=== PATIENT | male | born 1970 | race Caucasian/White ===

== ENCOUNTER → 2019-07-01 08:53 | Outpatient (CLI) | payer BC ==
[~2019-07-01 08:53] MED LIST: BAYER CHEWABLE81 MG PO; CHLORTHALIDONE50 MG PO; LIPITOR20 MG PO; LISINOPRIL20 MG; PLAVIX75 MG PO
--- NOTE | 2019-07-05 11:41 | ST ---
PATIENT:AMADOR TIWARI MEDICAL RECORD: [id number] SEX: M LOCATION:[facility] ORDER #: ADMISSION DATE: 07/01/19 AGE OF PATIENT: 48 REFERRING PHYSICIAN: INTERPRETING PHYSICIAN: TOMASA RIVERA MD DATE OF SERVICE: 07/01/2019 PROCEDURE: Nuclear stress test. INDICATION: Angina, shortness of breath, hypertension, and hyperlipidemia. He was exercised on standard Armin protocol for 10 minutes achieving 85% max target heart rate response with 33 mCi of sestamibi injected at peak stress, 11 mCi used previously for rest images. FINDINGS: Gated SPECT reveals a decreased ejection fraction at 45% with decreased thickening and brightening throughout the inferior segments. SPECT imaging: Cardiolite was used as myocardial perfusion agent. There is a fixed perfusion defect inferiorly compatible with a previous inferior myocardial infarction; however, there is reversibility anteriorly and apically. This includes the basal, mid, apical anterior segments as well as the apex itself. The degree of reversibility is mild. The amount of myocardium involved between the 2 defects is large. OVERALL IMPRESSION: This is an intermediate risk abnormal nuclear stress test, fixed perfusion defect inferiorly, reversible ischemia anteriorly and apically suggestive of multivessel coronary artery disease. TRANSINT:[id number] Voice Confirmation ID: [id number] DOCUMENT ID: [id number] TOMASA RIVERA MD at 1141 CC: ELIZABETH CERNA [id number] DICTATION DATE: 07/04/19 1153 POT FILLER: 07/05/19 0030 DEP CLI 07/01/19 [facility] [address] [place] [address]
[2019-07-13 08:11] VITALS: BMI 22.4
== END | disposition home or self-care (01) ==
LOC: D.HCCARDIO 08:53
PROVIDERS: ATTEND Internal Medicine Interventional Cardiology
DX: Z03.89 Encounter for observation for other suspected diseases and conditions ruled out (principal)

== ENCOUNTER 2019-07-13 07:38 | Outpatient (CLI) | payer BC ==
[~2019-07-13] VITALS: Ht 182.9 cm; Wt 75.0 kg
--- NOTE | ~2019-07-13 | HEMODYNAMI ---
PATIENT:AMADOR TIWARI MEDICAL RECORD: [id number] : 66 LOCATION:[facility] ADMISSION DATE: 07/13/19 Generatedon:07/13/201910:09 Patient name: AMADOR TIWARI Patient #: [id number] SSN: [id number] : 1970 Date of study: 07/13/2019 Page: Of Hemodynamic Procedure Report Patient Data Patient Demographics Procedure consent was obtained First Name: AMADOR Gender: Male Last Name: TE : 1970 Patient #: [id number] Age: 48 year(s) Race: Unknown SSN: [id number] Additional ID: [id number] Contact details Address: [address] [place] [address] State: [place] City: [place] Zip code: [address] Past Medical History Allergies Allergen Reaction Date Comments Reported Other allergy 07/13/2019 bactrim Admission Admission Data Admission Date: 07/13/2019 Admission Time: 7:38 Arrival Date: 07/13/2019 Arrival Time: 0:00 Admit Source: Other Insurance Payor: Private health insurance [facility] #: [id number] Height (in.): 71.65 BSA: 1.96 (m2) Height (cm.): 182 BMI: 22.64 (kg/m2) Weight (lbs.): 165.35 Weight (kg.): 75 Procedure Procedure Types Cath Procedure Diagnostic Procedure C [facility] w/Coronaries FFR/IVUS FFR Initial Sedation Charges Moderate Sedation up to 15 minutes Moderate Sedation up to 30 minutes PCI Procedure Coronary Stent Coronary Stent Initial Procedure Description Procedure Date Procedure Date: 07/13/2019 Procedure Start Time: 9:48 Procedure End Time: 10:07 Procedure Staff Name Function Rob Onofre MD Performing Physician Shayla Benavides RT Monitor Crispin Tavarez RN Nurse Suzie Cruz RT Scrub Procedure Data Cath Procedure Fluoroscopy Diagnostic fluoroscopy Total fluoroscopy Time: 4.3 time: 4.3 min min Diagnostic fluoroscopy Total fluoroscopy dose: 413 dose: 413 mGy mGy Contrast Material Contrast Material Type Amount (ml) Isovue 300 84 Entry Location Entry Primary Successful Side Size Upsize Upsize Entry Closure Du ccessful Closure Location (Fr) 1 (Fr) 2 (Fr) Remarks Device Remarks Radial Right 6 Fr Mechanical artery Short Compression Estimated blood loss: 5 ml Diagnostic catheters Device Type Used For End Catheter Placement DIAGNOSTIC Michael 110cm 5 Procedure Fr catheter ([id number]) Procedure Complications No complications Procedure Medications Medication Administration Route Dosage 0.9% NaCl I.V. 100 ml/hr Oxygen etCO2 Nasal cannula 2 l/min Heparin Flush Bag added to field 2 bags (1000units/500ml NS) Lidocaine 2% added to field 20 Radial Cocktail added to field 1 syringe (Verapamil 2mg/Nitro 400mcg/Heparin 1500units) Versed I.V. 2 mg Fentanyl I.V. 100 mcg Radial Cocktail I.A. 1 syringe (Verapamil 2mg/Nitro 400mcg/Heparin 1500units) Versed I.V. 1 mg Heparin Bolus I.V. 4000 units Integrilin (Bolus I.V. 6.8 ml 2mg/ml) Integrilin (Bolus wasted 3.2 ml 2mg/ml) Plavix P.O. 600 mg Hemodynamics Rest BSA: 1.96 (m2) O2 Consumption: Estimated: 231.1 (ml/min) O2 Consumption indexed: Estimated:117.91 (ml/min/m) Heart Rate: 66 (bpm) Snapshots Pre Cath Intra NCS Post Cath Vital Signs Time Heart Resp SPO2 etCO2 NIBP Rhythm Pain Sedation Rate (ipm) (%) (mmHg) (mmHg) Status Level (bpm) 9:05:04 66 13 99 40.1 118/81(92) NSR 0 (11) 10(A) , No pain 9:09:08 64 13 99 40.2 112/78(87) NSR 0 (11) 10(A) , No pain 9:13:10 61 12 99 40.2 112/77(88) NSR 0 (11) 10(A) , No pain 9:17:16 61 18 99 37.1 115/71(86) NSR 0 (11) 10(A) , No pain 9:21:19 60 13 99 37.1 111/74(84) NSR 0 (11) 10(A) , No pain 9:25:23 60 13 98 37.1 110/74(84) NSR 0 (11) 10(A) , No pain 9:29:27 64 11 98 42.4 117/74(88) NSR 0 (11) 10(A) , No pain 9:33:33 68 11 98 35.6 108/70(81) NSR 0 (11) 10(A) , No pain 9:37:36 64 11 98 37.9 108/69(78) NSR 0 (11) 10(A) , No pain 9:41:42 60 19 96 36.3 111/64(80) NSR 0 (11) 10(A) , No pain 9:45:44 66 11 98 28.8 116/76(88) NSR 0 (11) 10(A) , No pain 9:49:52 61 10 99 40.1 107/66(80) NSR 0 (11) 9(A) , No pain 9:53:58 69 12 96 34.1 104/61(83) NSR 0 (11) 9(A) , No pain 9:58:01 72 12 97 24.2 100/63(83) NSR 0 (11) 9(A) , No pain 10:02:03 71 11 98 39.4 108/66(79) NSR 0 (11) 10(A) , No pain 10:06:07 64 17 98 37.9 107/66(83) NSR 0 (11) 10(A) , No pain Medications Time Medication Route Dose Verified Delivered Reason Not es Effectiveness by by 9:03:10 0.9% NaCl I.V. 100 Crispin Crispin Per physician ml/hr Daysi Tavarez RN RN 9:03:20 Oxygen etCO2 2 l/min Crispin Crispin for low 02 sats Nasal Lorigan Daysi cannula RN RN 9:03:30 Heparin Flush added 2 bags Crispin Crispin used for Bag to Lorigan Lorigan procedure (1000units/500ml field RN RN NS) 9:03:43 Lidocaine 2% added 20ml Crispin Crispin for local to vial Lorigan Lorigan anesthetic field CHAUHAN RN 9:03:56 Radial Cocktail added 1 Crispin Crispin used for (Verapamil to syringe Lorigan Lorigan procedure 2mg/Nitro field RN RN 400mcg/Heparin 1500units) 9:47:37 Versed I.V. 2 mg Crispin Crispin for sedation Daysi Tavarez RN RN 9:47:45 Fentanyl I.V. 100 mcg Crispin Crispin for sedation Daysi Tavarez RN RN 9:50:33 Radial Cocktail I.A. 1 Crispin Rob for (Verapamil syringe Daysi Onofre MD vasodilation 2mg/Nitro RN 400mcg/Heparin 1500units) 9:50:42 Versed I.V. 1 mg Crispin Crispin for sedation Daysi Tavarez RN RN 9:56:10 Heparin Bolus I.V. 4000 Crispin Crispin for units aDysi Tavarez anticoagulation RN RN 9:56:31 Integrilin I.V. 6.8 ml Crispin Crispin for (Bolus 2mg/ml) Daysi Tavarez antiplatelet RN RN therapy 9:56:41 Integrilin wasted 3.2 ml Crispin Crispin to sharp's (Bolus 2mg/ml) Daysi Tavarez RN RN 10:03:00 Plavix P.O. 600 mg Crispin Crispin for Daysi Tavarez antiplatelet RN RN therapy Procedure Log Time Note 8:19:54 Patient allergic to Other allergybactrim 8:19:58 Admit Source: Other 8:20:01 Arrival Date: 07/13/2019 12:00:00 AM 8:20:20 Insurance Payor : Private health insurance 8:21:38 Patient Height : 71.65 inches 8:21:44 Patient Weight : 165.35 lbs 8:22:50 Procedure Status Elective Heart Cath (OP). 8:22:54 Crispin Tavarez RN sent for patient. Start room use. 8:22:55 Time tracking: Regular hours (M-F 7:00 - 5:00) 8:23:01 Plan of Care:Hemodynamics will remain stable., Cardiac rhythm will remain stable., Comfort level will be maintained., Respiratory function will remain adequate., Patient/ family verbilizes understanding of procedure., Procedure tolerated without complication., Recovers from procedure without complications.. 8:54:42 Signed procedure consent form obtained from patient. 8:54:43 Warm blankets applied, and becki hugger turned on for patient comfort. 8:54:44 Correct patient and procedure confirmed by team. 8:54:45 ECG and BP/O2 sat monitors applied to patient. 8:54:56 Fire Safety Assessment: A--An alcohol-based skin anteseptic being used preoperatively., C--Open oxygen or nitrous oxide is being used., D--An ESU, laser, or fiber-optic light is being used. 8:55:00 Physical assessment completed. ASA score P 2 - A patient with mild systemic disease as per Rob Onofre MD. 8:55:05 1) 90+ Normal kidney functon but urine findings or structural abnormalities or genetic trait point to kidney disease. 8:55:08 Maximum allowable contrast dose (3.7 X eGFR X 0.75)249 ml. 8:55:12 Sedation plan: IV Moderate Sedation Medication:Versed, Fentanyl 9:03:10 0.9% NaCl 100 ml/hr I.V. was administered by Crispin Tavarez RN; Per physician; Verbal order read back and verified. 9:03:20 Oxygen 2 l/min etCO2 Nasal cannula was administered by Crispin Tavarez RN; for low 02 sats; Verbal order read back and verified. 9:03:30 Heparin Flush Bag (1000units/500ml NS) 2 bags added to field was administered by Crispin Tavarez RN; used for procedure; Verbal order read back and verified. 9:03:43 Lidocaine 2% 20ml vial added to field was administered by Crispin Tavarez RN; for local anesthetic; Verbal order read back and verified. 9:03:56 Radial Cocktail (Verapamil 2mg/Nitro 400mcg/Heparin 1500units) 1 syringe added to field was administered by Crispin Tavarez RN; used for procedure; Verbal order read back and verified. 9:04:00 Vital chart was started 9:10:57 Baseline sample Acquired. 9:11:03 Rhythm: sinus rhythm 9:11:05 Full Disclosure recording started 9:11:20 H&P Date Dictated: 07/01/2019 Within 30 days and on chart., H&P Addendum completed by physician on day of procedure. (MUST COMPLETE FOR ALL OUTPATIENTS). 9:13:19 Pre-procedure instructions explained to patient. 9:13:20 Family in waiting room. 9:13:22 Patient NPO since Midnight. 9:13:25 Is the patient allergic to Iodine/contrast media? No. 9:13:26 Was the patient premedicated? Yes 9:13:40 Is patient on blood thinner?No 9:13:43 Patient diabetic? No. 9:13:47 Snore? Yes 9:13:48 Sleep apnea? No 9:13:54 Patient pain scale 0/10 ?. 9:14:02 IV patent on arrival in left forearm with 0.9% NaCl at [facility]. 9:14:05 Lab results completed and on chart. 9:14:25 Stress Test: yes; abnormal multivessel 9:14:30 Risk of Mortality: .1 9:14:33 Risk of blood transfusion: .2 9:14:36 Risk of JUAN DANIEL: .7 9:14:41 Right Radial & Right Groin area was prepped with chlora-prep and draped in sterile fashion 9:14:42 Alarms reviewed by R. N. 9:14:42 Sharps counted by scrub and verified by R.N. 9:14:49 Use device set Radial Dx or PCI 9:14:50 ACIST Syringe (20876) opened to sterile field. 9:14:51 Medline Cath Pack ([id number]) opened to sterile field. 9:14:51 Bag Decanter (2002S) opened to sterile field. 9:14:51 ACIST Hand Control (65937) opened to sterile field. 9:14:52 ACIST Manifold (75246) opened to sterile field. 9:14:52 Tegaderm 4 x 4 (1626W) opened to sterile field. 9:14:54 MBrace Wrist Support (851839333) opened to sterile field. 9:14:57 EMERALD Guide Wire (089-729) opened to sterile field. 9:14:58 SHEATH 6FR RAIN (8649508) opened to sterile field. 9:28:59 Zero performed for pressure channel P1 9:45:32 Physician paged 9:46:48 Physician arrived 9:46:49 --------ALL STOP TIME OUT------ 9:46:52 Final Timeout: patient, procedure, and site verified with staff and physician. All members of the team are in agreement. 9:46:55 Right Radial & Right Groin site verified by team. 9:47:37 Versed 2 mg I.V. was administered by Crispin Tavarez RN; for sedation; Verbal order read back and verified. 9:47:45 Fentanyl 100 mcg I.V. was administered by Crispin Tavarez RN; for sedation; Verbal order read back and verified. 9:48:28 Procedure started. 9:48:41 Local anesthetic to right radial artery with Lidocaine 2% by Rob Onofre MD.INITIAL ACCESS ONLY 9:49:47 A 6 Fr Short sheath was inserted into the Right Radial artery 9:50:00 A DIAGNOSTIC Michael 110cm 5 Fr catheter ([id number]) was advanced over the wire and used for Procedure. 9:50:33 Radial Cocktail (Verapamil 2mg/Nitro 400mcg/Heparin 1500units) 1 syringe I.A. was administered by Rob Onofre MD; for vasodilation; Verbal order read back and verified. 9:50:42 Versed 1 mg I.V. was administered by Crispin Tavarez RN; for sedation; Verbal order read back and verified. 9:50:47 LV angiography performed. 9:51:34 EF : 60 % 9:51:38 LCA angiography performed. 9:52:38 RCA angiography performed. 9:54:23 Catheter removed. 9:54:40 GUIDE 6FR XBC 3.5 (83594618) opened to sterile field. 9:55:00 King Verrata Plus pressure wire (44940L) opened to sterile field. 9:55:01 INFLATOR Merit BasixCompak (HD9519) opened to sterile field. 9:56:10 Heparin Bolus 4000 units I.V. was administered by Crispin Tavarez RN; for anticoagulation; Verbal order read back and verified. 9:56:31 Integrilin (Bolus 2mg/ml) 6.8 ml I.V. was administered by Crispin Tavarez RN; for antiplatelet therapy; Verbal order read back and verified. 9:56:41 Integrilin (Bolus 2mg/ml) 3.2 ml wasted was administered by Crispin Tavarez RN; to sharp's; Verbal order read back and verified. 9:58:21 6 Fr XBC3.5 guide catheter was inserted over the wire 9:58:33 FFR/IFR wire advanced. 10:00:56 Place stent Inflation Number: 1 A COBRA RX 3.5 X 18 Stent was prepped and advanced across the Mid LAD 70. The stent was deployed at 15 CASTILLO for 0:05 (min:sec) 0. 10:01:15 Inflation number: 2 The stent balloon was then re-inflated across the Mid LAD 0 to 15 CASTILLO for 0:02 (min:sec) . 10:01:22 ZEPHYR REGULAR TR BAND (495703) opened to sterile field. 10:01:41 Pre PCI Site: [place] mLAD has 70% stenosis. 10:01:55 Post PCI Site: [place] mLAD has 0% stenosis. 10:02:07 ACT drawn and resulted at 238 seconds. (normal therapeutic range 180-240 seconds). 10:02:56 Wire removed. 10:02:56 Guide catheter removed. 10:03:00 Plavix 600 mg P.O. was administered by Crispin Tavarez RN; for antiplatelet therapy; Verbal order read back and verified. 10:03:15 Sheath removed intact; hemostasis achieved with Mechanical Compression to the Right Radial artery. 10:03:17 Procedure ended.(Physican Out) 10:03:28 Fluoroscopy time 04.30 minutes. 10:03:32 Flurop Dose total: 413 10:03:32 Fluoroscopy dose: 413 mGy 10:03:38 Dose Area Product 67189 mGy/cm. 10:03:43 Contrast amount:Isovue 300 84ml. 10:03:45 Maximum allowable dose exceeded? No. 10:03:46 Sharps counted by scrub and verified by R.N. 10:03:51 Grant band inflated with 13cc of air. 10:03:53 Insertion/operative site no bleeding no hematoma. 10:04:41 Post-procedure physical assessment completed. ASA score P 2 - A patient with mild systemic disease as per Rob Onofre MD. 10:04:47 Post procedure rhythm: sinus rhythm 10:04:53 Estimated blood loss: 5 ml 10:04:56 Post procedure instruction explained to patient.Patient verbalizes understanding. 10:05:30 Procedure type changed to Cath procedure, Diagnostic procedure, LHC, LHC w/Coronaries, FFR/IVUS, FFR Initial, Sedation Charges, Moderate Sedation up to 15 minutes, Moderate Sedation up to 30 minutes, PCI procedure, Coronary Stent, Coronary Stent Initial 10:05:47 Procedure and supply charges have been captured, reviewed, submitted and are correct. 10:06:32 Procedure Complication : No complications 10:07:05 ACCDominant side:Co-Dominant 10:07:15 Vital chart was stopped 10:07:19 [facility] Findings: MVD- PCI performed (see procedure note) 10:07:23 Operative report dictated upon procedure completion. 10:07:24 See physician's report for complete and final results. 10:07:27 Report given to Pre/Post Procedure Room. 10:07:30 Patient transfered to Pre/Post Procedure Room with Stretcher. 10:07:32 Procedure ended. 10:07:32 Full Disclosure recording stopped 10:07:49 ACC-PCI Only Patient was given prescriptions, or instructed by Rob Onofre MD to start/continue the following medications upon discharge: Plavix 10:07:51 End room use (Document Last) 10:08:06 End room use (Document Last) Intervention Summary Intervention Notes Time ActionType Lesion and Equipment Action# Pressure Duration Attributes Used 10:00:56 Place stent Mid LAD COBRA RX 1 15 00:05 3.5 X 18 Stent 10:01:15 Reinflate Mid LAD COBRA RX 2 15 00:03 stent 3.5 X 18 balloon Stent Device Usage Item Name Manufacture Quantity Catalog Hospital Part Current Minimal Lot# / Number Charge Number Stock Stock Serial# Code ACIST Syringe Acist 1 18685 666263 327115 487930 20 (79686) Medical Systems Inc Medline Cath Medline 1 [id number] 925517 73545 135665 5 Pack ([id number]) Bag Decanter Microtek 1 2002S 584264 07429 265014 5 (2001S) Medical Inc. ACIST Hand Acist 1 59631 076518 296435 116319 5 Control Medical (30474) Systems Inc ACIST Manifold Acist 1 73556 220848 251388 956561 5 (57796) Medical Systems Inc Tegaderm 4 x 4 3M 1 1626W 739591 309475 167784 5 (1626W) MBrace Wrist Advanced 1 140-0250-00 365212 47516 081111 5 Support Vascular (512736078) Dynamics EMERALD Guide Cardinal 1 502455 768289 675739 245132 5 Wire (689-455) Health SHEATH 6FR Cardinal 1 0212410 306339 0582085 373613 5 RAIN (6238459) Health DIAGNOSTIC Terumo 1 40-5523 722696 693239 059988 5 Michael 110cm 5 Fr catheter (499357) GUIDE 6FR XBC Cardinal 1 73467855 625627 77997 133354 5 3.5 (59109842) Health King King 1 22364U 811978 980762178 679215 5 Verrata Plus pressure wire (07996T) INFLATOR Merit Merit 1 RL7128 020757 497525 072409 15 [facility] Medical (EX7148) COBRA RX 3.5 X Celonova 1 052097 [id number] [id number] 4 [id number] 18 stent Biosciences () ZEPHYR REGULAR Cardinal 1 473851 908824 3743948 866775 5 [facility] TranslationExchange (676947) Signature Audit Lucas Stage Time Signature Unsigned Intra-Procedure 07/13/2019 Shayla Benavides 10:08:06 AM RT(R) Intra-Procedure 07/13/2019 Crispin 10:08:41 AM Daysi CHAUHAN Intra-Procedure 07/13/2019 Rob Onofre 10:09:07 AM Signatures Performing Physician : Signature : Rob Onofre MD Date : Time : Monitor : Shayla Benavides Signature : RT Date : Time : Nurse : Crispin Tavarez Signature : RN Date : Time : [facility] [address] [place] [address]
[2019-07-13 08:11] VITALS: BP 128/83; Ht 182.9 cm; Wt 75.0 kg
[2019-07-13] MEDS ORDERED: CHLORTHALIDONE50 MG PO (08:18)
[2019-07-13] MEDS ORDERED: LISINOPRIL20 MG (08:18)
[2019-07-13] MEDS ORDERED: LIPITOR20 MG PO (08:19)
[2019-07-13 08:20] LABS: BASOPHILS 0.4 % (0-2); EOSINOPHILS 5.5 % (0-7); HEMATOCRIT 41.2 % (42.0-54.0); IMMATURE GRANULOCYTES 0.4 % (0-5); LYMPHOCYTES 30.3 % (15-50); MCH 31.6 pg (26.0-34.0); MEAN PLATELET VOLUME 9.8 fL (7.4-10.4); MONOCYTES 6.5 % (2-11); NEUTROPHILS 56.9 % (40-80); PLATELET COUNT 315 10x3/uL (130-400); RBC 4.43 10x6/uL (4.20-6.10); RDW 13.3 % (11.5-14.5); WBC 10.7 10x3/uL (4.8-10.8)
[2019-07-13 08:38] LABS: ALT (SGPT) 40 U/L (10-68); CALC OSMOLALITY 274 mosm/kg (275-300); CALCIUM 9.4 mg/dL (8.5-10.1); CARBON DIOXIDE 28.5 mmol/L (21.0-32.0); CHLORIDE - SERUM 99 mmol/L (98-107); CHOL - HDL RATIO 4.7 ratio (2.3-4.9); CHOLESTEROL, TOTAL 183 mg/dL (0-200); CREATININE - SERUM 0.8 mg/dL (0.6-1.3); GLUCOSE 93 mg/dL (74-106); HDL CHOLESTEROL 39 mg/dL (32-96); LDL CHOLESTEROL 121 mg/dL (0-100); LDL-HDL RATIO 3.1 ratio (1.5-3.5); POTASSIUM - SERUM 3.7 mmol/L (3.5-5.1); SODIUM 137 mmol/L (136-145); TRIGLYCERIDE 119 mg/dL (30-200); UREA NITROGEN 16 mg/dL (7-18); eGFR NON AFRICAN AMERICAN > 90 mL/min (90-120)
--- NOTE | 2019-07-13 10:15 | NUR ---
PT RECEIVED VIA STRETCHER FROM HEALTH EDUCATION AIDE FOR RECOVERY. PT SLEEPING BUT VERBALLY AROUSABLE. PT PLACED ON CARDIAC MONITORS, O2 ON AT 2L/NC. IV PATENT INFUSING VIA ORDERS. ZYPHER BAND AND IMMOBILIZER TO R WRIST, DRESSING CDI NO BLEEDING OR HEMATOMA NOTED. ARM PINK AND WARM, CAP REFILL BRISK. AT BEDSIDE, CALL LIGHT IN REACH
[2019-07-13] MEDS ORDERED: PLAVIX75 MG PO (10:17)
[2019-07-13] MEDS ORDERED: BAYER CHEWABLE81 MG PO (10:17)
--- NOTE | 2019-07-13 10:45 | NUR ---
PT STILL SLEEPING, Z BAND AND IMMOBILIZER IN PLACE. DRESSING CDI NO BLEEDING OR SWELLING NOTED. ARM PINK AND WARM, CAP REFILL BRISK. VSS. CALL LIGHT IN REACH
--- NOTE | 2019-07-13 11:29 | NUR ---
PT REMAINS SLEEPING, Z BAND AND IMMOBILIZER IN PLACE. DRESSING CDI NO BLEEDING OR SWELLING NOTED. ARM PINK AND WARM, CAP REFILL BRISK. REMAINS AT BEDSIDE, CALL LIGHT IN REACH
--- NOTE | 2019-07-13 12:00 | NUR ---
PT STILL SLEEPING, Z BAND IN PLACE NO BLEEDING OR HEMATOMA NOTED. ARM PINK AND WARM, CAP REFILL BRISK. VSS. DR RIVERA WAS IN AND SPOKE WITH REGARDING PROCEDURE RESULTS AND PLAN OF CARE. VSS. CALL LIGHT REMAINS IN REACH
--- NOTE | 2019-07-13 12:35 | NUR ---
PT SLEEPING WITH AT BEDSIDE. Z BAND IN PLACE, NO BLEEDING OR SWELLING FROM SITE NOTED. PT DENIES PAIN OR NEEDS AT THIS TIME. REMAINS AT BEDSIDE
--- NOTE | 2019-07-13 13:00 | NUR ---
3CC AIR REMOVED FROM Z BAND W/O BLEEDING OR SWELLING NOTED. HOB ELEVATED SLIGHTLY. O2 REMOVED. SANDWICH TRAY AND DRINK SERVED. DENIES OTHER NEEDS. VSS. CALL LIGHT IN REACH, REMAINS AT BS
--- NOTE | 2019-07-13 13:00 | NUR ---
600 CC CLEAR YELLOW URINE EMPTIED FROM URINAL.
--- NOTE | 2019-07-13 13:30 | NUR ---
PT RESTING COMFORTABLY, Z BAND IN PLACE, 3 ADD'L CC AIR REMOVED W/O BLEEDING. VSS. ARM PINK AND WARM, CAP REFILL BRISK. CALL LIGHT IN REACH
--- NOTE | 2019-07-13 14:00 | NUR ---
DISCHARGE INSTRUCTIONS REVIEWED W PT AND , BOTH VERBALIZED UNDERSTANDING. EXPLAINED IMPORTANCE OF GETTING PLAVIX FILLED AND STARTING THAT TOMORROW. IV REMOVED W CATH INTACT, MONITORS REMOVED. REMAINING AIR REMOVED FROM Z BAND W/O BLEEDING NOTED. PT UP TO DRESS FOR DISCHARGE
--- NOTE | 2019-07-13 14:05 | NUR ---
Z BAND REMOVED, STARTING TO BLEED SLIGHTLY Z BAND REPLACED WITH 2CC AIR. WILL WATCH BEFORE DISCHARGE
--- NOTE | 2019-07-13 14:08 | OP ---
PATIENT NAME: AMADOR TIWARI MEDICAL RECORD: [id number] :66 LOCATION:[facility] ADMISSION DATE: SURGEON: TOMASA RIVERA MD DATE OF OPERATION: 07/13/2019 PROCEDURES: 1. PTCA stent LAD. 2. IFR. 3. Left heart catheterization. 4. Selective coronary angiography. 5. Left ventriculogram. INDICATION: Angina, coronary artery disease, abnormal nuclear stress test. DESCRIPTION OF PROCEDURE: After informed consent was obtained and after a detailed description of the risks, benefits as well as alternative therapies, the patient elected to proceed with angiogram and angioplasty. The right radial area was prepped and draped in normal sterile fashion. Right radial artery was cannulated via modified Seldinger technique with placement of 6-Italian sheath. All catheters exchanged through this sheath. FINDINGS: Left ventriculogram was performed in standard 30-degree SHEPHERD view, reveals good cardiac wall motion, ejection fraction is 60%. SELECTIVE CORONARY ANGIOGRAPHY: 1. Left main is with no significant angiographic disease. 2. Left anterior descending has a 70% stenosis in mid vessel. IFR was abnormal at 0.85. 3. Left circumflex has mild irregularities, but no flow-limiting stenosis. 4. Right coronary artery has moderate irregularities, but no flow-limiting stenosis. PTCA STENT OF THE LAD: The stent used was a 3.5 x 18 mm Cobra. Result was 0% residual stenosis. OVERALL IMPRESSION: Successful percutaneous transluminal coronary angioplasty stent of the left anterior descending going from 70% initial stenosis with abnormal IFR to 0% residual. TRANSINT:[id number] Voice Confirmation ID: [id number] DOCUMENT ID: [id number] TOMASA RIVERA MD at 1408 CC: [id number] DICTATION DATE: 07/13/19 1005 VIDEO AND SOUND RECORDER: 07/13/19 1045 [facility] [address] [place] [address]
--- NOTE | 2019-07-13 14:20 | NUR ---
AIR REMOVED AND Z BAND REMOVED, NO BLEEDING NOTED. 2X2 AND TEGADERM DRESSING APPLIED. 1430 PT DISCHARGED VIA WC TO WAITING IN PRIVATE VEHICLE. PT HAS ALL BELONGINGS AND DISCHARGE PAPERWORK.
== END 2019-07-13 14:30 | disposition home or self-care (01) ==
LOC: D.CATH 07:38
PROVIDERS: ATTEND Internal Medicine Interventional Cardiology
DX: I25.110 Atherosclerotic heart disease of native coronary artery with unstable angina pectoris (principal); R94.30 Abnormal result of cardiovascular function study, unspecified; R06.02 Shortness of breath